=== PATIENT | male | born 2000 | race African-American/Black ===

== ENCOUNTER 2024-09-15 13:12 | Emergency (ER) | payer MEDICAID ==
[~2024-09-15] VITALS: Ht 175.3 cm; Wt 65.0 kg
[2024-09-15 13:19] VITALS: O2SAT 99
[2024-09-15 13:21] VITALS: BP 126/73; PULSE 87; TEMP 98.3; O2SAT 98
[2024-09-15] MEDS: FENTANYL CITRATE/PF 50MCG/ML 2ML VIAL IM ONE (14:02)
[2024-09-15] MEDS ORDERED: DOCU100T MT (14:38)
[2024-09-15 14:41] VITALS: RESP 16
== END 2024-09-15 14:42 | disposition home or self-care (01) ==
LOC: ER 13:12
DX: K62.3 Rectal prolapse (principal); Z98.890 Other specified postprocedural states
CPT/HCPCS: 96372; 99283; J3010; Z7610